=== PATIENT | female | born 1950 | race Hispanic/Latino ===

== ENCOUNTER 2019-08-06 16:41 | Emergency (ER) | payer OTHER ==
[2019-08-06 17:55] LABS: APPEARANCE,URINE Clear (CLEAR); BILIRUBIN,URINE Negative (NEGATIVE); COLOR,URINE Yellow (YELLOW); GLUCOSE, URINE (UA) Negative (NEGATIVE); KETONES,URINE Negative (NEGATIVE); LEUKOCYTE ESTERASE ,URINE Large (NEGATIVE); NITRATE,URINE Negative (NEGATIVE); OCCULT BLOOD,URINE Negative (NEGATIVE); PH,URINE 6.5 (5.0-8.0); PROTEIN,URINE Negative (NEGATIVE)
[2019-08-06 18:07] LABS: BASOPHILS % (AUTO) 0.1 % (0.0-5.0); EOSINOPHILS % (AUTO) 0.4 % (0.0-8.0); HEMATOCRIT 40.1 % (36-48); LYMPHOCYTES % (AUTO) 14.3 % (21.0-51.0); MEAN CORPUSCULAR HEMOGLOBIN 27.4 pg (27.0-33.0); MEAN CORPUSCULAR HGB CONC 31.7 g/dL (32.0-36.0); MEAN CORPUSCULAR VOLUME 86.6 fL (79-99); MONOCYTES % (AUTO) 0.7 % (3.0-13.0); NEUTROPHILS % (AUTO) 70.4 % (40.0-77.0); PLATELET COUNT (AUTO) 144 K/uL (130-400); RED BLOOD CELL COUNT(AUTO) 4.63 MIL/uL (4.00-5.50); RED CELL DISTRIBUTION WIDTH 13.6 % (11.0-15.5); WHITE BLOOD COUNT (AUTO) 15.1 K/uL (4.8-10.8)
[2019-08-06] MEDS ORDERED: SODIUM CHLORIDE 0.9% 1000ML 1,000 ML IV ONE (18:12)
[2019-08-06 18:13] LABS: BACTERIA,URINE Few /HPF (None Seen); RBC,URINE None Seen /HPF (0-1); SQUAMOUS EPITHELIAL CELL,UR 0-2 /HPF (0-2)
[2019-08-06] MEDS ORDERED: CEFTRIAXONE SODIUM 1 GM ONE (18:15)
[2019-08-06 18:21] LABS: CREATININE 0.7 mg/dL (0.5-1.5); INR 0.96 (0.85-1.15); PARTIAL THROMBOPLASTIN TIME 25.4 SEC (26.3-35.5); POTASSIUM 3.9 mmol/L (3.5-5.1); PROTHROMBIN TIME 10.4 SEC (9.6-11.6)
[2019-08-06 18:26] LABS: ALBUMIN 3.8 g/dL (3.5-5.0); BILIRUBIN,TOTAL 0.4 mg/dL (0.2-1.0); TOTAL PROTEIN, SERUM 7.1 g/dL (6.0-8.3)
[2019-08-06] MEDS ORDERED: ACETAMINOPHEN 325 MG TAB ONE (18:56)
== END 2019-08-06 19:29 | disposition home or self-care (01) ==
LOC: EDH 16:41
DX: N39.0 Urinary tract infection, site not specified (principal); Z85.3 Personal history of malignant neoplasm of breast; Z91.048 Other nonmedicinal substance allergy status
CPT/HCPCS: 36415; 80053; 81001; 82550; 84484; 85025; 85610; 85730; 87088; 93005; 96374; 99284; J0696; J7030

== ENCOUNTER → 2022-04-19 | Outpatient (CLI) | payer OTHER | END | disposition home or self-care (01) | LOC: SHCH 10:59 | PROVIDERS: ATTEND Student in an Organized Health Care Education/Training Program | DX: I35.8 Other nonrheumatic aortic valve disorders (principal); I11.9 Hypertensive heart disease without heart failure; E11.9 Type 2 diabetes mellitus without complications; E78.5 Hyperlipidemia, unspecified | CPT/HCPCS: 93306 ==

== ENCOUNTER 2022-11-10 13:48 | Emergency (ER) | payer OTHER ==
[~2022-11-10] VITALS: Ht 149.9 cm; Wt 79.4 kg
[2022-11-10 14:25] LABS: BASOPHILS # (AUTO) 0.02 K/uL (0.00-0.20); BASOPHILS % (AUTO) 0.2 % (0.0-5.0); EOSINOPHILS # (AUTO) 0.09 K/uL (0.00-0.70); HEMATOCRIT 42.8 % (36-48); IMMATURE GRANULOCYTE ABSOLUTE 0.02 K/uL (0-1); LYMPHOCYTES # (AUTO) 4.4 K/uL (1.0-4.8); LYMPHOCYTES % (AUTO) 50.9 % (21.0-51.0); MEAN CORPUSCULAR HEMOGLOBIN 27.8 pg (27.0-33.0); MONOCYTES # (AUTO) 0.7 K/uL (0.1-1.0); MONOCYTES % (AUTO) 8.4 % (3.0-13.0); NEUTROPHILS # (AUTO) 3.4 K/uL (1.8-7.7); NEUTROPHILS % (AUTO) 39.3 % (40.0-77.0); PLATELET COUNT (AUTO) 202 K/uL (130-400); RED BLOOD CELL COUNT(AUTO) 4.92 MIL/uL (4.00-5.50); RED CELL DISTRIBUTION WIDTH 15.9 % (11.0-15.5); WHITE BLOOD COUNT (AUTO) 8.6 K/uL (4.8-10.8)
[2022-11-10 14:26] LABS: ADD UA MICROSCOPIC YES; APPEARANCE,URINE CLEAR (CLEAR); BILIRUBIN,URINE NEGATIVE (NEGATIVE); COLOR,URINE YELLOW (YELLOW); GLUCOSE, URINE (UA) NEGATIVE (NEGATIVE); KETONES,URINE NEGATIVE (NEGATIVE); LEUKOCYTE ESTERASE ,URINE 25 Leu/uL (NEGATIVE); NITRATE,URINE NEGATIVE (NEGATIVE); OCCULT BLOOD,URINE NEGATIVE (NEGATIVE); PROTEIN,URINE NEGATIVE (NEGATIVE); UROBILINOGEN,URINE 0.2 mg/dL (0.2-1.0)
[2022-11-10 14:27] LABS: MUCUS,URINE RARE LPF (None Seen); RBC,URINE 0-1 /HPF (0-1); SQUAMOUS EPITHELIAL CELL,UR RARE /HPF (0-2)
[2022-11-10 14:34] LABS: CREATININE 0.7 mg/dL (0.5-1.5); POTASSIUM 3.8 mmol/L (3.5-5.1)
[2022-11-10 14:43] LABS: ALBUMIN 3.6 g/dL (3.5-5.0); BILIRUBIN,TOTAL 0.3 mg/dL (0.2-1.0); MAGNESIUM 2.3 mg/dL (1.80-2.40); TOTAL PROTEIN, SERUM 7.3 g/dL (6.0-8.3)
[2022-11-10] MEDS ORDERED: 0.9%NACL 1000ML 1,000 ML IV ONE (17:30)
[2022-11-10] MEDS ORDERED: MORPHINE 4 MG SYG IVP ONE (17:30)
[2022-11-10] MEDS ORDERED: ONDANSETRON 4MG INJ IVP ONE (17:30)
[2022-11-10] MEDS ORDERED: CEPH500B PO (18:43)
[2022-11-10] MEDS ORDERED: LACT20PA6 PO (18:43)
[2022-11-10] MEDS ORDERED: DOCU-133 PO (18:43)
[2022-11-10 20:00] VITALS: BP 129/60; PULSE 70; RESP 18; O2SAT 97
== END 2022-11-10 17:31 | disposition left against medical advice (07) ==
LOC: EDH 13:48
DX: N39.0 Urinary tract infection, site not specified (principal); K57.90 Diverticulosis of intestine, part unspecified, without perforation or abscess without bleeding; K59.00 Constipation, unspecified; E11.9 Type 2 diabetes mellitus without complications; E78.00 Pure hypercholesterolemia, unspecified; I10 Essential (primary) hypertension; Z85.3 Personal history of malignant neoplasm of breast
CPT/HCPCS: 99285; 74176; 96374; 71045; 96361; 96375; 82550; 83735; 83874; 84484; 80053; 83690; 85025; 81001; 36415; 93005; J7030; J2405; J2270

== ENCOUNTER 2023-02-22 12:18 | Observation (INO) | payer OTHER ==
[~2023-02-22] VITALS: Ht 149.9 cm; Wt 78.8 kg
[~2023-02-22 12:18] MED LIST: CEPH500B PO; DOCU-133 PO; LACT20PA6 PO
[2023-02-22 12:50] LABS: BASOPHILS # (AUTO) 0.02 K/uL (0.00-0.20); BASOPHILS % (AUTO) 0.3 % (0.0-5.0); EOSINOPHILS # (AUTO) 0.12 K/uL (0.00-0.70); EOSINOPHILS % (AUTO) 1.7 % (0.0-8.0); HEMATOCRIT 46.6 % (36-48); IMMATURE GRANULOCYTE ABSOLUTE 0.03 K/uL (0-1); LYMPHOCYTES # (AUTO) 2.2 K/uL (1.0-4.8); LYMPHOCYTES % (AUTO) 30.6 % (21.0-51.0); MEAN CORPUSCULAR HEMOGLOBIN 29.3 pg (27.0-33.0); MEAN CORPUSCULAR HGB CONC 32.4 g/dL (32.0-36.0); MEAN CORPUSCULAR VOLUME 90.5 fL (79-99); MONOCYTES # (AUTO) 0.5 K/uL (0.1-1.0); MONOCYTES % (AUTO) 7.2 % (3.0-13.0); NEUTROPHILS # (AUTO) 4.2 K/uL (1.8-7.7); NEUTROPHILS % (AUTO) 59.8 % (40.0-77.0); PLATELET COUNT (AUTO) 226 K/uL (130-400); RED BLOOD CELL COUNT(AUTO) 5.15 MIL/uL (4.00-5.50); RED CELL DISTRIBUTION WIDTH 13.2 % (11.0-15.5); WHITE BLOOD COUNT (AUTO) 7.1 K/uL (4.8-10.8)
[2023-02-22 13:00] LABS: CREATININE 0.7 mg/dL (0.5-1.5); POTASSIUM 3.6 mmol/L (3.5-5.1)
[2023-02-22 13:05] LABS: ALBUMIN 3.7 g/dL (3.5-5.0); BILIRUBIN,TOTAL 0.3 mg/dL (0.2-1.0); TOTAL PROTEIN, SERUM 7.7 g/dL (6.0-8.3)
[2023-02-22 14:04] LABS: APPEARANCE,URINE CLEAR (CLEAR); BILIRUBIN,URINE NEGATIVE (NEGATIVE); COLOR,URINE COLORLESS (YELLOW); GLUCOSE, URINE (UA) 200 mg/dL (NEGATIVE); KETONES,URINE NEGATIVE (NEGATIVE); LEUKOCYTE ESTERASE ,URINE NEGATIVE Leu/uL (NEGATIVE); NITRATE,URINE NEGATIVE (NEGATIVE); OCCULT BLOOD,URINE NEGATIVE (NEGATIVE); PH,URINE 5.5 (5.0-8.0); PROTEIN,URINE NEGATIVE (NEGATIVE); UROBILINOGEN,URINE 0.2 mg/dL (0.2-1.0)
[2023-02-22 14:08] LABS: ADD UA MICROSCOPIC YES
[2023-02-22 14:39] LABS: RBC,URINE 0-1 /HPF (0-1); WBC,URINE 0-1 /HPF (0-1)
[2023-02-22] MEDS ORDERED: GUAIFENESIN-DM 200/20 MG 10 ML PO PRN (15:30)
[2023-02-22] MEDS ORDERED: MAG/ALUM/SIMETH 30 ML UDCUP PO PRN (15:30)
[2023-02-22] MEDS ORDERED: ONDANSETRON 4MG INJ IV PRN (15:30)
[2023-02-22] MEDS ORDERED: DIPHENHYDRAMINE HCL 25 MG CAPSULE PO PRN (15:30)
[2023-02-22] MEDS ORDERED: MORPHINE 2 MG SYG IV PRN (15:30)
[2023-02-22] MEDS ORDERED: NITROGLYCERIN 0.4 MG SL TAB SL PRN (15:30)
[2023-02-22] MEDS ORDERED: LACTULOSE 20 GM/30 ML UDCUP PO PRN (15:30)
[2023-02-22] MEDS ORDERED: ZOLPIDEM TARTRATE 5 MG TAB PO PRN (15:30)
[2023-02-22] MEDS ORDERED: ACETAMINOPHEN WITH CODEINE 1 TAB TAB PO PRN (15:30)
[2023-02-22] MEDS ORDERED: ACETAMINOPHEN 325 MG TAB PO PRN ×2 (15:30)
[2023-02-22] MEDS ORDERED: HYDRALAZINE 20MG/ML VIAL IV PRN (15:30)
[2023-02-22 15:57] LABS: HEMOGLOBIN A1C 6.6 % (4.0-6.0)
[2023-02-22] MEDS ORDERED: IOHEXOL 350 MG/ML 100ML INFUS..BTL IV ONE (16:38)
[2023-02-22] MEDS ORDERED: EXEM25TA PO (18:23)
[2023-02-22] MEDS ORDERED: TOBROS OU (18:23)
[2023-02-22] MEDS ORDERED: SIMV-46 PO (18:23)
[2023-02-22] MEDS ORDERED: GARL1000 PO (18:23)
[2023-02-22] MEDS ORDERED: OMEP20CA12 PO (18:23)
[2023-02-22] MEDS ORDERED: FERR240T6 PO (18:23)
[2023-02-22] MEDS ORDERED: DOCU100C33 PO (18:23)
[2023-02-22] MEDS ORDERED: METF-444 PO (18:23)
[2023-02-22] MEDS ORDERED: KETO.5OS OD (18:23)
[2023-02-22] MEDS ORDERED: CETI10CA5 PO (18:23)
[2023-02-22] MEDS ORDERED: PREDAOS OU (18:23)
[2023-02-22] MEDS ORDERED: AMLO-257 PO (18:23)
[2023-02-22] MEDS ORDERED: CALC-1209 PO (18:23)
[2023-02-22 20:00] VITALS: BP 149/84; PULSE 75; RESP 18
[2023-02-22 20:20] VITALS: O2SAT 99
[2023-02-22] MEDS: METOPROLOL TARTRATE 25 MG TAB PO SCH ×2 (20:46→20:54)
[2023-02-22] MEDS: ATORVASTATIN 40 MG TABLET PO SCH ×2 (20:46→20:53)
[2023-02-22] MEDS: FAMOTIDINE 20MG TAB PO SCH (20:46)
[2023-02-23] VITALS: BP 129/62; PULSE 66; RESP 18
[2023-02-23 04:00] VITALS: BP 129/75; PULSE 70; RESP 18
[2023-02-23 08:00] VITALS: BP 141/81; PULSE 63; RESP 17
[2023-02-23] MEDS: METOPROLOL TARTRATE 25 MG TAB PO SCH (08:34)
[2023-02-23] MEDS: FAMOTIDINE 20MG TAB PO SCH (08:34)
[2023-02-23 08:37] LABS: THYROID STIMULATING HORMONE 2.48 uIU/mL (0.36-3.74)
[2023-02-23] MEDS ORDERED: ASPIRIN 81 MG EC TAB PO SCH (09:00)
[2023-02-23] MEDS ORDERED: ENOXAPARIN SODIUM 40 MG/0.4 ML SYRINGE SQ SCH (09:00)
== END 2023-02-23 12:40 | disposition home or self-care (01) ==
LOC: EDH 12:18 → EDHIP 15:10 → 4CH 17:55
PROVIDERS: ADMIT Internal Medicine; ATTEND Internal Medicine
DX: R55 Syncope and collapse (principal); K29.00 Acute gastritis without bleeding; R79.89 Other specified abnormal findings of blood chemistry; E11.36 Type 2 diabetes mellitus with diabetic cataract; I10 Essential (primary) hypertension; E78.00 Pure hypercholesterolemia, unspecified; C50.919 Malignant neoplasm of unspecified site of unspecified female breast; E78.5 Hyperlipidemia, unspecified; Z79.899 Other long term (current) drug therapy; Z79.82 Long term (current) use of aspirin; Z90.710 Acquired absence of both cervix and uterus
CPT/HCPCS: 99285; 83036; 82550 ×3; 84484 ×4; 80053; 85025; 85378; 82948 ×2; 81001; 36415 ×2; 71045; 70450; 71270; 93306; 93356; 93970; 93005 ×3; 84145; 84443; 84439; G0378 ×21; Q9967

== ENCOUNTER → 2023-03-14 | Outpatient (CLI) | payer OTHER ==
[~2023-03-14] MED LIST changes: +AMLO-257 PO; +CALC-1209 PO; +CETI10CA5 PO; +DOCU100C33 PO; +EXEM25TA PO; +FERR240T6 PO; +GARL1000 PO; +IOHEXOL 350 MG/ML 100ML INFUS..BTL IV ONE; +KETO.5OS OD; +METF-444 PO; +METOPROLOL TARTRATE 1 MG/ML 5ML VIAL IV ONE; +OMEP20CA12 PO; +PREDAOS OU; +SIMV-46 PO; +TOBROS OU
== END | disposition home or self-care (01) ==
LOC: RAH 08:22
PROVIDERS: ATTEND Student in an Organized Health Care Education/Training Program
DX: R07.9 Chest pain, unspecified (principal); M47.815 Spondylosis without myelopathy or radiculopathy, thoracolumbar region
CPT/HCPCS: 75574; J3490; Q9967

== ENCOUNTER → 2023-10-27 | Outpatient (CLI) | payer OTHER ==
[~2023-10-27] MED LIST changes: +GADOTERATE MEGLUMINE 10 MMOL/20 ML VIAL IV ONE; -GARL1000 PO; +GARL10002 PO; -IOHEXOL 350 MG/ML 100ML INFUS..BTL IV ONE; -METOPROLOL TARTRATE 1 MG/ML 5ML VIAL IV ONE
== END | disposition home or self-care (01) ==
LOC: RAH 14:58
PROVIDERS: ATTEND Family Medicine
DX: C50.312 Malignant neoplasm of lower-inner quadrant of left female breast (principal); N64.59 Other signs and symptoms in breast
CPT/HCPCS: 77049; A9575